=== PATIENT | male | born 1980 | race Caucasian/White ===

== ENCOUNTER 2021-02-25 16:48 | Emergency (ER) | payer SELFPAY ==
[~2021-02-25] VITALS: Ht 180.3 cm; Wt 81.8 kg
[2021-02-25 17:00] VITALS: BP 133/82
== END 2021-02-25 20:00 | disposition left against medical advice (07) ==
LOC: EMS 16:58
DX: M25.561 Pain in right knee (principal); Z53.21 Procedure and treatment not carried out due to patient leaving prior to being seen by health care provider